=== PATIENT | female | born 1995 | race Caucasian/White ===

== ENCOUNTER 2016-12-20 03:13 | Emergency (ER) | payer OTHER ==
[2016-12-20] MEDS ORDERED: NS 0.9% 1000 ML* 1,000 ML IV SCH (04:00)
[2016-12-20 04:06] LABS: Hematocrit 44 % (35-47); Hemoglobin 14.2 g/dl (12.0-16.0); Mean Corpuscular HGB Conc 32 g/dl (31-36); Mean Corpuscular Hemoglobin 28 pg (27-31); Mean Corpuscular Volume 87 fL (80-97); Mean Platelet Volume 9 um3 (7.4-10.4); Red Blood Count 5.02 10^6/ul (4.0-5.4); Red Cell Distribution Width 14 % (10.5-15); White Blood Count 10.3 10^3/ul (3.5-10.8)
[2016-12-20 04:20] LABS: ALT 14 U/L (7-52); AST 27 U/L (13-39); Albumin 4.4 g/dL (3.2-5.2); Alkaline Phosphatase 55 U/L (34-104); Anion Gap 11 mmol/L (2-11); BUN/Creatinine Ratio 13.1 (8-20); Blood Urea Nitrogen 13 mg/dL (6-24); CO2 Carbon Dioxide 23 mmol/L (22-32); Calcium 9.7 mg/dL (8.6-10.3); Chloride 102 mmol/L (101-111); EGFR African American 91.1 (>60); EGFR Non-African American 70.8 (>60); Glucose 84 mg/dL (70-100); Lipase 30 U/L (11.0-82.0); Potassium 3.9 mmol/L (3.5-5.0); Sodium 136 mmol/L (133-145); Total Protein 8.4 g/dL (6.4-8.9)
[2016-12-20 05:00] LABS: Urine Bacteria 1+ (Absent); Urine Bilirubin Negative (Negative); Urine Glucose Negative (Negative); Urine Nitrite Negative (Negative)
[2016-12-20] MEDS ORDERED: Iohexol 300* (CONTRAST) 10 ML SDV IV ONE (05:44)
--- NOTE | 2016-12-20 06:30 | RAD ---
INDICATION: Right lower quadrant pain. Appendicitis. COMPARISON: CT April 10, 2009 TECHNIQUE: Axial source images were obtained from the hemidiaphragms to the symphysis pubis following administration of oral and intravenous contrast. 69 mL Omnipaque 300 was utilized. Coronal and sagittal reconstructed images were acquired. Lung bases: The lung bases are clear. Liver: The liver is normal in size. There are no masses. There is no ductal dilatation. Gallbladder: There are no calcified gallstones. There is no evidence of wall thickening or pericholecystic fluid. The gallbladder is partially contracted Spleen: The spleen is normal in size. There are no masses. Pancreas: There is no focal pancreatic mass or ductal dilatation. Adrenal glands: There is no evidence of adrenal mass. Kidneys: The kidneys are normal in size and position. There are prompt nephrograms and there is prompt excretion bilaterally. There are no renal parenchymal masses. There is no evidence of nephrolithiasis. Adenopathy: There is no evidence of adenopathy by size criteria. Fluid collections: There is moderate free fluid in the cul-de-sac. Vessels:There are no significant atherosclerotic changes involving the aorta. There is no focal aneurysm. The iliac vessels are normal in caliber. The IVC appears normal. GI tract: There are no acute CT bowel findings. There is no obstruction. The stomach and small bowel appear normal. The lower GI tract is normal. The cecum, ileocecal valve, and terminal ileum appear normal. There is limited evaluation of a normal-appearing appendix. There is no periappendiceal inflammatory change Pelvic organs: The uterus and adnexa appear normal Bladder: There are no bladder masses. Abdominal and pelvic soft tissues: The extraperitoneal abdominal and pelvic soft tissues appear normal.. Osseous structures: There are no acute osseous findings. Other: None IMPRESSION: MODERATE FREE FLUID DEPENDENT PORTION OF PELVIS LIKELY PHYSIOLOGIC IN ORIGIN. NO SPECIFIC CT FINDINGS TO SUGGEST ACUTE APPENDICITIS. HOWEVER, SUGGEST CLINICAL MANAGEMENT TO INCLUDE SURGICAL REFERRAL IF CLINICALLY INDICATED.
[2016-12-20] MEDS ORDERED: Pantoprazole TAB (NF) 40 MG TAB PO ONE (06:39)
--- NOTE | 2016-12-20 06:41 | ED ---
Aldair Greene Karl, scribed for Geraldo Jc on 12/20/16 at 0349 . Abdominal Pain/Female - HPI Summary HPI Summary: 21 y/o F presents w/ c/o lower abd pain. Pt reported "intestinal pain" for the past several days and stated "feels like acid is eating away on my insides." Pt has generalized anxiety disorder that she believes causes the pain. PT stated she had mild diarrhea earlier and some nausea. Pt denied vomiting and SOB. Hx: Anxiety. - History of Current Complaint Chief Complaint: EDAbdPain Stated Complaint: ABD PAIN Time Seen by Provider: 12/20/16 03:43 Hx Obtained From: Patient Hx Last Menstrual Period: 1 WEEK AGO ?: No Onset/Duration: Gradual Onset Timing: Constant Severity Initially: Moderate Severity Currently: Moderate Pain Intensity: 7 - abd pain Pain Scale Used: 0-10 Numeric Location: Discrete At: RLQ, Discrete At: LLQ Allergies/Adverse Reactions: Allergies Allergy/AdvReac Type Severity Reaction Status Date / Time Morphine Allergy Severe Vomiting Verified 12/20/16 06:04 PMH/Surg Hx/FS Hx/Imm Hx Previously Healthy: No Infectious Disease History: No Infectious Disease History: Denies: Traveled Outside the [place] in Last 30 Days - Family History Known Family History: Negative: Cardiac Disease, Hypertension, Diabetes - Social History Alcohol Use: Occasionally Substance Use Type: Reports: None Smoking Status (MU): Never Smoked Tobacco Review of Systems Constitutional: Negative Eyes: Negative ENT: Negative Cardiovascular: Negative Respiratory: Negative Positive: Abdominal Pain, Diarrhea, Nausea. Negative: Vomiting Genitourinary: Negative Musculoskeletal: Negative Skin: Negative Neurological: Negative Positive: Anxious All Other Systems Reviewed And Are Negative: Yes Physical Exam Triage Information Reviewed: Yes Vital Signs On Initial Exam: Initial Vitals Temp Pulse Resp BP Pulse Ox 98.4 F 75 20 128/72 100 12/20/16 03:17 12/20/16 03:17 12/20/16 03:17 12/20/16 03:17 12/20/16 03:17 Vital Signs Reviewed: Yes Appearance: Positive: Well-Appearing, No Pain Distress Skin: Positive: Warm, Skin Color Reflects Adequate Perfusion, Dry Head/Face: Positive: Normal Head/Face Inspection Eyes: Positive: EOMI, OSVALDO ENT: Positive: Normal ENT inspection Neck: Positive: Supple, Nontender Respiratory/Lung Sounds: Positive: Clear to Auscultation, Breath Sounds Present Cardiovascular: Positive: RRR, Pulses are Symmetrical in both Upper and Lower Extremities Abdomen Description: Positive: Other: - tenderness in the RLQ and LLQ Bowel Sounds: Positive: Present Musculoskeletal: Positive: Normal, Strength/ROM Intact Neurological: Positive: Normal, Sensory/Motor Intact, Alert, Oriented to Person Place, Time Psychiatric: Positive: Anxious Diagnostics - Vital Signs Vital Signs Temp Pulse Resp BP Pulse Ox 12/20/16 03:17 98.4 F 75 20 128/72 100 - Laboratory Result Diagrams: 12/20/16 03:55 12/20/16 03:55 Lab Statement: Any lab studies that have been ordered have been reviewed, and results considered in the medical decision making process. - CT CT Abd/Pelvis w/ [CT] CT Interpretation: Positive (See Comments) CT Interpretation Completed By: Radiologist - IMPRESSION: MODERATE FREE FLUID DEPENDENT PORTION OF PELVIS LIKELY PHYSIOLOGIC IN ORIGIN. NO SPECIFIC CT FINDINGS TO SUGGEST ACUTE APPENDICITIS. HOWEVER, SUGGEST CLINICAL MANAGEMENT TO INCLUDE SURGICAL REFERRAL IF CLINICALLY INDICATED. Abdominal Pain Fem Course/Dx - Diagnoses Provider Diagnoses: Unspecified abdominal pain Discharge - Discharge Plan Condition: Stable Disposition: HOME Patient Education Materials: Abdominal Pain (ED) Referrals: Vicky Garcia MD [Primary Care Provider] - Additional Instructions: Please follow up with your primary care provider in the next 3 days. The documentation as recorded by the Aldair lacy Karl accurately reflects the service I personally performed and the decisions made by , Geraldo Jc.
[2016-12-20 06:54] VITALS: BP 105/55
[2016-12-20] MEDS ORDERED: Omeprazole CAP* 20 MG PO ONE (07:00)
== END 2016-12-20 06:53 | disposition home or self-care (01) ==
LOC: ED 03:13
DX: R10.31 Right lower quadrant pain (principal); F41.1 Generalized anxiety disorder
CPT/HCPCS: 36415; 74177; 80053; 81003; 81015; 83690; 84702; 85025; 85610; 85730; 87086; 99282; A9270-GY; Q9967

== ENCOUNTER 2017-03-14 20:36 | Emergency (ER) | payer OTHER ==
[2017-03-14 21:06] VITALS: BP 128/87
[2017-03-14] MEDS ORDERED: HYDROcodone/ACETAMIN 5-325 MG* 1 TAB PO ONE (21:07)
--- NOTE | 2017-03-14 21:14 | UC ---
Ear Complaint HPI - History of Current Complaint Stated Complaint: EAR PAIN Time Seen by Provider: 03/14/17 20:58 Hx Last Menstrual Period: 1 WEEK AGO - Allergies/Home Medications Allergies/Adverse Reactions: Allergies Allergy/AdvReac Type Severity Reaction Status Date / Time Morphine Allergy Severe Vomiting Verified 12/20/16 06:04 Home Medications: Home Medications Amoxicillin (*) [Amoxicillin 875 MG (*)] BID 03/14/17 [History] Loratadine & Pseudoephedrine [Loratadine-D 12Hr 5-120 mg] 03/14/17 [History] PMH/Surg Hx/FS Hx/Imm Hx Endocrine History Of: Denies: Diabetes Cardiovascular History Of: Denies: Hypertension GI/ History Of: Denies: Renal Disease - Surgical History Surgical History: None - Family History Known Family History: Negative: Cardiac Disease, Hypertension, Diabetes - Social History Alcohol Use: Occasionally Substance Use Type: None Smoking Status (MU): Never Smoked Tobacco Physical Exam Vital Signs: Initial Vital Signs Temp 99.1 F 03/14/17 20:57 Pulse 88 03/14/17 20:57 Resp 20 03/14/17 20:57 BP 128/87 03/14/17 20:57 Pulse Ox 94 03/14/17 20:57 Discharge - Discharge Plan Condition: Stable Disposition: HOME Prescriptions: Ciproflox/Dexameth OTIC.SUSP* [Ciprodex OTIC.SUSP*] 4 drop .SEE ORDER BID #1 btl Hydrocodone-Acetaminophen [Hydrocodone/Acetaminophen 5-325 mg] 0.5 - 1 tab PO Q4HR PRN #6 tab MDD 4 PRN Reason: pain Patient Education Materials: Otitis Externa (ED) Forms: *School Release Referrals: Vicky Garcia MD [Primary Care Provider] - 3 Days
== END 2017-03-14 21:21 | disposition home or self-care (01) ==
LOC: UCEAST 20:36
DX: H92.09 Otalgia, unspecified ear (principal)
CPT/HCPCS: 99212; G0463

== ENCOUNTER 2017-07-19 20:15 | Emergency (ER) | payer OTHER ==
[2017-07-19 20:23] VITALS: BP 130/93
--- NOTE | 2017-07-19 22:05 | UC ---
Respiratory Complaint HPI - HPI Summary HPI Summary: 21 YO female with the onset last PM of fever myalgias/fatigue/headache/runny nose/sore throat and cough no cp or sob no n/v/d - History of Current Complaint Chief Complaint: UCRespiratory Stated Complaint: FLU COMPLAINT Time Seen by Provider: 07/19/17 21:42 Hx Obtained From: Patient Hx Last Menstrual Period: one week ago Onset/Duration: Sudden Onset, Lasting Hours Timing: Constant Severity Initially: Severe Severity Currently: Severe Pain Intensity: 8 Pain Scale Used: 0-10 Numeric Character: Cough: Nonproductive Aggravating Factors: Nothing Alleviating Factors: Nothing Associated Signs And Symptoms: Positive: Fever, Chills, Nasal Congestion - Allergies/Home Medications Allergies/Adverse Reactions: Allergies Allergy/AdvReac Type Severity Reaction Status Date / Time Morphine Allergy Severe Vomiting Verified 07/19/17 20:23 Home Medications: Home Medications [id number] W/ APAP [Tylenol Cold & Flu Severe [id number] mg] 1 tab PO ONCE 07/19/17 [History Confirmed 07/19/17] PMH/Surg Hx/FS Hx/Imm Hx Previously Healthy: Yes Psychological History: Anxiety - Surgical History Surgical History: None - Family History Known Family History: Negative: Cardiac Disease, Hypertension, Diabetes - Social History Alcohol Use: Occasionally Substance Use Type: None Smoking Status (MU): Never Smoked Tobacco Review of Systems Constitutional: Fever, Chills, Fatigue Skin: Negative Eyes: Negative ENT: Sore Throat, Nasal Discharge Respiratory: Cough Cardiovascular: Negative Gastrointestinal: Negative Genitourinary: Negative Motor: Negative Neurovascular: Negative Musculoskeletal: Myalgia - ++++ Neurological: Negative Psychological: Negative Is Patient Immunocompromised?: No All Other Systems Reviewed And Are Negative: Yes Physical Exam Triage Information Reviewed: Yes Appearance: Well-Appearing, No Pain Distress, Well-Nourished Vital Signs: Initial Vital Signs Temp 99.4 F 07/19/17 20:20 Pulse 85 07/19/17 20:20 Resp 12 07/19/17 20:20 BP 130/93 07/19/17 20:20 Pulse Ox 100 07/19/17 20:20 Vital Signs Reviewed: Yes Eyes: Positive: Conjunctiva Clear ENT: Positive: Hearing grossly normal, Pharyngeal erythema, Nasal drainage. Negative: Trismus, Muffled/hoarse voice Dental Exam: Normal Neck: Positive: Supple, Nontender Respiratory: Positive: Lungs clear, Normal breath sounds, No respiratory distress, No accessory muscle use Cardiovascular: Positive: RRR, No Murmur Musculoskeletal: Positive: ROM Intact, No Edema Psychological Exam: Normal Skin Exam: Normal UC Diagnostic Evaluation - Laboratory O2 Sat by Pulse Oximetry: 100 - normal/not hypoxic Diagnostic Studies Comment: RS and Rapid influenza (-) Respiratory Course/Dx - Differential Dx/Diagnosis Provider Diagnoses: influenza like illness Discharge - Discharge Plan Condition: Stable Disposition: HOME Patient Education Materials: Viral Syndrome (ED) Forms: *Work Release Referrals: Vicky Garcia MD [Primary Care Provider] - 2 Days Additional Instructions: both your rapid strep and rapid flu test were negative rest fluids tylenol or advil recheck in 2 days if not jami recheck sooner for new or worsening symptoms
== END 2017-07-19 22:34 | disposition home or self-care (01) ==
LOC: UCEAST 20:15
DX: J11.1 Influenza due to unidentified influenza virus with other respiratory manifestations (principal); Z88.5 Allergy status to narcotic agent; F41.9 Anxiety disorder, unspecified
CPT/HCPCS: 87502; 87651; 99211; G0463